=== PATIENT | male | born 1995 | race Caucasian/White ===

== ENCOUNTER 2018-01-18 08:16 | Emergency (ER) | payer MEDICAID, OTHER ==
[2018-01-18] MEDS: HYDROCODONE/APAP (5/325) TAB PO (09:05)
== END 2018-01-18 12:19 | disposition home or self-care (01) ==
LOC: FTE 08:16
DX: S89.92XA Unspecified injury of left lower leg, initial encounter (principal); S79.912A Unspecified injury of left hip, initial encounter; S79.922A Unspecified injury of left thigh, initial encounter; V23.4XXA Motorcycle driver injured in collision with car, pick-up truck or van in traffic accident, initial encounter
CPT/HCPCS: 72100; 73510; 73550; 73562; 99284-25